=== PATIENT | female | born 2000 | race Caucasian/White ===

== ENCOUNTER 2018-12-05 14:51 | Emergency (ER) | payer BC ==
--- NOTE | 2018-12-05 15:07 | UC ---
Palpitation/Dysrhythmia HP - HPI Summary HPI Summary: PT presents to at the advice if her PCP. Pt states x 10-14 days has been having palpitations. Pt states saw her PCP on Monday - pt had labwork including magnesium and TSH. Patient states she was referred to a paid search marketing strategist that she saw yesterday. Patient states she had a 24-hour Holter placed yesterday. Patient states at approximately 1:30 she was sitting at her desk when she started to feel a burning acid feeling in her chest feeling mild short of breath. Patient states when she took a deep breath in the burning seemed worse. Patient denies cough. No wheeze. No lightheaded. No nausea or vomiting. No diarrhea. Patient states she had 2 cups of coffee this morning and has had several foods throughout the morning and lunch. Patient denies any diarrhea. Patient states at present she feels fine with no complaints. Patient states she was not sweaty. Patient denies any chest heaviness just the burning pain when she took a deep breath. Patient is on control pills. Patient without any history of DVTs. Patient has not traveled recently. Patient's on no [id number] medications. Patient without a family history of coagulopathy. Patient states she called her PCP who recommended she come to urgent care to be evaluated. Patient denies any trauma. 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 Nobody else sick at home or at work. Patient denies smoking. Patient denies drinking. Patient denies any substance use. Patient states she did not feel like she had the palpitations with the episode today. Patient states she is not her last normal period approximately 2 weeks ago. Patient's medications reviewed this visit. Pt denies tick bite - History of Current Complaint Chief Complaint: UCChestPain Stated Complaint: HEART Time Seen by Provider: 12/05/18 15:01 Hx Obtained From: Patient Hx Last Menstrual Period: 11/24/18 Onset/Duration: Lasting Minutes - 2530 Timing: Intermittent Episodes Lasting: Severity Currently: None Pain Intensity: 0 Pain Scale Used: 0-10 Numeric - Allergy/Home Medications Allergies/Adverse Reactions: Allergies Allergy/AdvReac Type Severity Reaction Status Date / Time No Known Allergies Allergy Verified 12/05/18 15:02 Home Medications: Home Medications DOXYcycline CAP(*) [DOXYcycline 100MG CAP(*)] 100 mg PO DAILY 12/05/18 [History Confirmed 12/05/18] Levothyroxine TAB* [Synthroid TAB*] 75 mcg PO 0800 12/05/18 [History Confirmed 12/05/18] Liothyronine Sodium [Cytomel] 5 mcg PO DAILY WITH MEAL 12/05/18 [History Confirmed 12/05/18] l-Norgest/E.estradiol-E.estrad [Ashlyna 0.15-0.03 &0.01 mg] 1 tab PO DAILY WITH MEAL 12/05/18 [History Confirmed 12/05/18] PMH/Surg Hx/FS Hx/Imm Hx Previously Healthy: Yes Respiratory History: Other - palpitations - Surgical History Surgical History: None - Family History Known Family History: Positive: Other - no DVT, grandfather with pacemaker, Non- Contributory - Social History Occupation: Employed Full-time Lives: With Family Alcohol Use: None Substance Use Type: None Smoking Status (MU): Never Smoked Tobacco Review of Systems All Other Systems Reviewed And Are Negative: Yes Constitutional: Positive: Negative Skin: Positive: Negative Eyes: Positive: Negative Respiratory: Positive: Shortness Of Breath Cardiovascular: Positive: Palpitations Is Patient Immunocompromised?: No Physical Exam - Summary Physical Exam Summary: Vital Signs Reviewed: Yes A+Ox3, no distress, pleasant, appears comfortable Eyes: Conjunctiva Clear, CHIVO. EOM intact and full ENT: Hearing grossly normal TM x 2 clear, mmoist, uvula midline, no exudate, no erythema Neck: Positive: Supple, no bruits b/l Respiratory: Positive: No respiratory distress, No accessory muscle use + CTA throughout no w/r full easy respirations Cardiovascular: RRR nl s1, s2 no m/r CBT <2 sec, no bruits abd soft + BS nt/nd no guarding, no distension Musculoskeletal Exam: DEMPSEY x 4 without difficulty Strength Intact, ROM Intact Neurological: Positive: Alert, + sensation throughout, no gait abnormality, + FNF Psychological: Positive: Normal Response To Family Skin: Positive: no rash, no ecchymosis, no diaphoresis Triage Information Reviewed: Yes Vital Signs: Initial Vital Signs Temp 100 F 12/05/18 14:54 Pulse 91 12/05/18 14:54 Resp 18 12/05/18 14:54 BP 126/79 12/05/18 14:54 Pulse Ox 100 12/05/18 14:54 Diagnostics - EKG Cardiac Rate: NL - 86 , NSR no acute ST, t wave change No old for comparison ST Segment: Normal EKG Comparison: No Significant Change Re-Evaluation - Re-Evaluation First Eval Comment: reviewed urine, POC. Pt's not orthostatic. no symptoms, hypoxia, or palpitation with ambulation. Pt states feels slight symptoms with change in position - but fast resolution - this has been on going. will discharge home. recommend f/u with PCP this week. return holter tomorrow. 911 to ED with any recurrence or change of sx. recommend bland diet, decreaes caffeine, consider maalox/tums. pt comfortable and in agreement with plan Palpitations Course/Dx - Course Course Of Treatment: Patient presents to urgent care reporting feeling slightly short of breath with burning on inspiration at 1:30 today. Patient states this started suddenly last about 25 minutes is completely resolved. Patient without any complaints or concerns at the time of evaluation. Of note, patient has been having palpitations over the last 10-14 days. Patient saw her primary doctor on Monday who did blood work that patient reports was normal. This is not available in our system. Patient also saw cardio dissected Monday (24-hour Holter monitor. Patient was wearing it today during her episodes. Patient did not have palpitations during the episode. Reviewed patient's coagulation risk factors. Patient is on control pills but does not smoke, has not traveled , has no calf pain, and has no family history. Patient denies any over-the- counter medications. Patient does drink a couple coffees a day. Patient does not like to caffeine. Patient without any complaints at the time of evaluation. EKG reviewed and not concerning. Will check a blood sugar, urine, . We'll do orthostatics as well as take checked out walking sat and HR. the patient remained symptoms free and these are non-concerning will likely discharge patient with plan to follow the cardiac just tomorrow when she returns the Holter monitor. Advised patient that if her symptoms return she should go to emergency department immediately. Patient states understanding and comfortable plan. Of note, patient did states in the morning she has some nausea that is better after eating so I wonder whether some of her symptoms are related to GERD. We'll discussed with patient taking an antacid and watching her food choices. - Differential Dx/Diagnosis Provider Diagnosis: Dizziness, Palpitations with regular cardiac rhythm Discharge - Sign-Out/Discharge Documenting (check all that apply): Patient Departure All imaging exams completed and their final reports reviewed: No Studies - Discharge Plan Condition: Stable Disposition: HOME Patient Education Materials: Heart Palpitations (ED), Lightheadedness (ED) Referrals: No Primary Care Phys,NOPCP [Primary Care Provider] - Additional Instructions: - Stay well hydrated - drink plenty of non-caffinated beverages - eat small, frequent meals - avoid spicy foods, acidic foods, citric foods - It is recommend to try Maalox or Tums in the morning if you have nausea - Do not drink caffinated or carbonated beverages on an empty stomach - it is recommended you discuss your symptoms with the cardiology office tomorrow when you return your holter monitor. If you have any recurrent symptoms - shortness of breath, vomiting, chest pain you go directly to the emergency department for further evaluation - have someone drive you or contact 911 Schedule a follow-up appointment with your primary doctor in [place] this week - Billing Disposition and Condition Condition: STABLE Disposition: Home
== END 2018-12-05 16:27 | disposition home or self-care (01) ==
LOC: UCEAST 14:51
DX: R42 Dizziness and giddiness (principal); R00.2 Palpitations; R06.02 Shortness of breath; R11.0 Nausea; Z79.3 Long term (current) use of hormonal contraceptives
CPT/HCPCS: 81003; 84702; 99202; G0463